=== PATIENT | male | born 1960 | race Caucasian/White ===

== ENCOUNTER 2018-06-06 15:09 | Emergency (ER) | payer OTHER, SELFPAY ==
[2018-06-06] VITALS (13 sets, daily range): BP systolic 117–132; BP diastolic 70–90; PULSE 67–79; RESP 11–21; TEMP 36.3; O2SAT 95–100; BMI 29.0
--- NOTE | 2018-06-06 15:27 | ED.CHESTPAIN ---
HPI - Chest Pain <IBIS Oliver-BC - Last Filed: 06/06/18 22:54> General Chief Complaint: Chest Pain Stated Complaint: CHEST TIGHTNESS AND BACK Time Seen by Provider: 06/06/18 15:25 Source: patient Mode of arrival: ambulatory Limitations: no limitations History of Present Illness HPI narrative: Patient presents with chief complaint of chest pain for 10 days. He states that was going on and off at 1st, but has become constant over the past 2-3 days. He states it was initially a relieved by eating, but it no longer is. It initially stayed in the front epigastric area and radiated to the back sometimes. But he states now it hurts in both places. He does complain of chest pain, but points to epigastric area distal to sternum. He denies any palpitations, lightheadedness, dizziness, fever, nausea, vomiting, diarrhea or abdominal pain. He does state he has been taking lots of Motrin the past few days for his arthritis. He states he had high it cholesterol about 5 years ago but denies high blood pressure. He denies any history of stroke or heart attack and his family, though his brother has 2 stents and his mother had high blood pressure. He tried some [id number] Zantac, but states it did not help her worsens pain. He denies any current alleviating factors at this point in time. He denies shortness of breath. He did just drive from [facility]. Related Data Previous Rx's Medication Instructions Recorded pantoprazole [Protonix] 40 mg PO DAILY #14 tab 06/06/18 Allergies Allergy/AdvReac Type Severity Reaction Status Date / Time No Known Drug Allergies Allergy Verified 06/06/18 15:28 Review of Systems <GILBERTO OliverBC - Last Filed: 06/06/18 22:54> Review of Systems GENERAL: See HPI HEENT: Denies sinus pain, ear pain, sore throat, difficulty swallowing, dizziness. RESPIRATORY: See HPI CARDIOVASCULAR: See HPI GASTROINTESTINAL: Denies nausea, vomiting, abdominal pain, diarrhea, constipation, melena. : Denies dysuria, frequency, incontinence, hematuria, urinary retention. MUSCULOSKELETAL: denies weakness, joint pain, or bony pain SKIN: Denies rash, skin lesions, or other NEUROLOGIC: Denies weakness, headache, numbness, change in speech, confusion, seizures, incoordination. PSYCHIATRIC: No concerning psychosocial issues. 12 point review of systems is negative except for those stated above Exam <CHRISSY OliverP-BC - Last Filed: 06/06/18 22:54> Narrative Exam Narrative: GENERAL: This is a well-nourished, well-developed patient, in no acute distress lying on stretcher. HEAD: Atraumatic. Normocephalic. No temporal or scalp tenderness. EYES: Pupils equal round and reactive. Extraocular motions intact. No scleral icterus. No injection or drainage. ENT: Nose without bleeding, purulent drainage or septal hematoma. Throat without erythema, tonsillar hypertrophy or exudate. Uvula midline. Airway patent. NECK: Trachea midline. No JVD or lymphadenopathy. Supple, nontender, no meningeal signs. CARDIOVASCULAR: Regular rate and rhythm without murmurs, gallops, or rubs. RESPIRATORY: Clear to auscultation. Breath sounds equal bilaterally. No wheezes, rales, or rhonchi. No cough on exam. No pain on anterior posterior compression or lateral compression. GASTROINTESTINAL: Abdomen soft, non-tender, nondistended. No hepato-splenomegaly, or palpable masses. No guarding. Active bowel sounds all 4 quadrants. EXTREMITIES: No clubbing, cyanosis, or edema. No joint tenderness, effusion, or edema noted. BACK: Spine is Nontender without deformity or crepitance. No flank tenderness. Pain to palpation of left paraspinal muscles in the thoracic area. NEURO: AOx3. SKIN: No rash or erythema. Initial Vital Signs Initial Vital Signs: Vital Signs Temperature 97.4 F L 06/06/18 15:21 Pulse Rate 76 06/06/18 15:21 Respiratory Rate 16 06/06/18 15:21 Blood Pressure 132/79 06/06/18 15:21 Pulse Oximetry 100 06/06/18 15:21 <Yogi Reece DO - Last Filed: 06/06/18 23:39> Initial Vital Signs Initial Vital Signs: Vital Signs Temperature 97.4 F L 06/06/18 15:21 Pulse Rate 76 06/06/18 15:21 Respiratory Rate 16 06/06/18 15:21 Blood Pressure 132/79 06/06/18 15:21 Pulse Oximetry 100 06/06/18 15:21 Course <Leanna Aguero [employer] SAL[employer]ERSON-BC - Last Filed: 06/06/18 22:54> Additional Information: I checked on the patient multiple times throughout his stay. Orders Ordered: ED Orders 06/06/18 15:17 EKG-12 Lead Routine 06/06/18 15:54 XR chest 1V Stat 06/06/18 15:55 Amylase Stat Complete Blood Count AUTO DIFF Stat Comprehensive Metabolic Panel Stat Lipase Stat Troponin & CK Cardiac Panel Stat 06/06/18 19:30 Troponin I Stat 06/06/18 20:36 CT angio chest PE protocol Stat Discontinued Medications Al Hydrox/Mg Hydrox/Simethicone 20 ml/ Lidocaine HCl 15 ml 0 ml PO NOW ONE Stop: 06/06/18 15:55 Last Admin: 06/06/18 16:30 Dose: 35 ml Al Hydrox/Mg Hydrox/Simethicone 20 ml/ Lidocaine HCl 15 ml 0 ml PO NOW ONE Stop: 06/06/18 22:25 Last Admin: 06/06/18 22:39 Dose: 35 ml Sodium Chloride (Normal Saline 0.9%) 1,000 mls @ 150 mls/hr IV CONT CATARINA Last Infusion: 06/06/18 22:55 Dose: 150 mls/hr Admin: 06/06/18 16:31 Dose: 150 mls/hr Ketorolac Tromethamine (Toradol) 30 mg IV NOW ONE Stop: 06/06/18 17:22 Last Admin: 06/06/18 17:32 Dose: 30 mg Pantoprazole Sodium (Protonix) 40 mg IV NOW ONE Stop: 06/06/18 17:12 Last Admin: 06/06/18 17:32 Dose: 40 mg Vital Signs - 8 hr 06/06/18 15:42 06/06/18 15:53 06/06/18 16:31 Pulse Rate 67 72 79 Respiratory Rate 21 16 13 Blood Pressure Blood Pressure [Left Arm] 129/90 119/77 129/90 Pulse Oximetry 100 95 98 06/06/18 16:41 06/06/18 17:00 06/06/18 17:51 Pulse Rate 73 74 76 Respiratory Rate 15 19 Blood Pressure Blood Pressure [Left Arm] 127/79 117/72 Pulse Oximetry 99 97 98 06/06/18 19:00 06/06/18 19:26 06/06/18 20:15 Pulse Rate 72 73 67 Respiratory Rate 17 19 11 L Blood Pressure Blood Pressure [Left Arm] 119/77 119/77 119/73 Pulse Oximetry 98 97 98 06/06/18 21:22 06/06/18 22:04 06/06/18 22:58 Pulse Rate 71 69 70 Respiratory Rate 13 Blood Pressure 124/70 Blood Pressure [Left Arm] 120/73 121/80 Pulse Oximetry 97 98 100 <Yogi Reece DO - Last Filed: 06/06/18 23:39> Orders Ordered: ED Orders 06/06/18 15:17 EKG-12 Lead Routine 06/06/18 15:54 XR chest 1V Stat 06/06/18 15:55 Amylase Stat Complete Blood Count AUTO DIFF Stat Comprehensive Metabolic Panel Stat Lipase Stat Troponin & CK Cardiac Panel Stat 06/06/18 19:30 Troponin I Stat 06/06/18 20:36 CT angio chest PE protocol Stat Discontinued Medications Al Hydrox/Mg Hydrox/Simethicone 20 ml/ Lidocaine HCl 15 ml 0 ml PO NOW ONE Stop: 06/06/18 15:55 Last Admin: 06/06/18 16:30 Dose: 35 ml Al Hydrox/Mg Hydrox/Simethicone 20 ml/ Lidocaine HCl 15 ml 0 ml PO NOW ONE Stop: 06/06/18 22:25 Last Admin: 06/06/18 22:39 Dose: 35 ml Sodium Chloride (Normal Saline 0.9%) 1,000 mls @ 150 mls/hr IV CONT CATARINA Last Infusion: 06/06/18 22:55 Dose: 150 mls/hr Admin: 06/06/18 16:31 Dose: 150 mls/hr Ketorolac Tromethamine (Toradol) 30 mg IV NOW ONE Stop: 06/06/18 17:22 Last Admin: 06/06/18 17:32 Dose: 30 mg Pantoprazole Sodium (Protonix) 40 mg IV NOW ONE Stop: 06/06/18 17:12 Last Admin: 06/06/18 17:32 Dose: 40 mg Vital Signs - 8 hr 06/06/18 15:42 06/06/18 15:53 06/06/18 16:31 Pulse Rate 67 72 79 Respiratory Rate 21 16 13 Blood Pressure Blood Pressure [Left Arm] 129/90 119/77 129/90 Pulse Oximetry 100 95 98 06/06/18 16:41 06/06/18 17:00 06/06/18 17:51 Pulse Rate 73 74 76 Respiratory Rate 15 19 Blood Pressure Blood Pressure [Left Arm] 127/79 117/72 Pulse Oximetry 99 97 98 06/06/18 19:00 06/06/18 19:26 06/06/18 20:15 Pulse Rate 72 73 67 Respiratory Rate 17 19 11 L Blood Pressure Blood Pressure [Left Arm] 119/77 119/77 119/73 Pulse Oximetry 98 97 98 06/06/18 21:22 06/06/18 22:04 06/06/18 22:58 Pulse Rate 71 69 70 Respiratory Rate 13 Blood Pressure 124/70 Blood Pressure [Left Arm] 120/73 121/80 Pulse Oximetry 97 98 100 MDM - Chest Pain <IBIS Oliver- - Last Filed: 06/06/18 22:54> Lab Data Attestation: I reviewed the patient's lab results. Result diagrams: 06/06/18 15:55 06/06/18 15:55 Lab Results 06/06/18 06/06/18 06/06/18 Range/Units 15:55 15:55 19:30 WBC 8.5 (4.5-11.0) X10^3/uL RBC 5.01 (4.5-5.9) X10^6/uL Hgb 14.3 (13.5-17.5) g/dL Hct 42.0 (41-53) % MCV 83.8 (80-100) fL MCH 28.7 (26-34) PG MCHC 34.2 (30-36) % RDW 13.9 (11.6-14.8) % Plt Count 291 (150-400) X10^3/uL Neut % (Auto) 60.8 (50-75) % Lymph % (Auto) 27.6 (25-40) % [place] % (Auto) 7.9 (3-14) % Eos % (Auto) 3.1 (2-4) % Baso % (Auto) 0.6 (0-2) % Neut # (Auto) 5100 (5772-1733) /uL Sodium 141 (137-145) mmol/L Potassium 4.3 (3.4-5.1) mmol/L Chloride 103 (98-107) mmol/L Carbon Dioxide 28 (22-32) mmol/L BUN 14 (9-20) mg/dL Creatinine 1.00 (0.66-1.25) mg/dL Estimated GFR > 60.0 (>60) mL/min BUN/Creatinine Ratio 14.0 (6-22) Glucose 84 (70-100) mg/dL Calcium 9.3 (8.4-10.2) mg/dL Total Bilirubin 0.4 (0.2-1.3) mg/dL AST 23 (17-59) IU/L ALT 32 (21-72) IU/L Alkaline Phosphatase 47 (38-126) U/L Total Creatine Kinase 115 (55-170) U/L CK-MB (CK-2) 1.25 (<2.37) ng/mL CK-MB (CK-2) Rel Index 1.1 L (1.5-5.0) % Troponin I < 0.012 < 0.012 (0.01-0.034) ng/mL Total Protein 7.1 (6.3-8.2) g/dL Albumin 4.2 (3.5-5.0) g/dL Globulin 2.9 (1.7-4.1) g/dL Albumin/Globulin Ratio 1.4 (1.0-2.8) Amylase 85 (30-110) U/L Lipase 66 (23-300) U/L Imaging Data Chest x-ray: Radiologist's impression: [place] [address] XRay Report Signed Patient: Alessandro Fuentes MR#: [id number] : 1960 Acct:[id number] Age/Sex: 57 / M Date of Service: 06/06/18 Loc: ED Accession Number: [id number] Procedure: XR chest 1V Ordering Provider: Leanna Aguero PROCEDURE: XR CHEST 1V INDICATIONS: chest pain TECHNIQUE: One view of the chest was acquired. COMPARISON: None. FINDINGS: Surgical changes and devices: None. Lungs and pleura: No pleural effusions or pneumothorax. Lungs are clear. Mediastinum: Mediastinal contours appear normal. Heart size is normal. Bones and chest wall: No suspicious bony lesions. Overlying soft tissues appear unremarkable. IMPRESSION: Unremarkable chest. No acute cardiopulmonary process is evident. Dictated by: Pedro Brandt M.D. on 06/06/2018 at 15:24 Approved by: Pedro Brandt M.D. on 06/06/2018 at 15:25 CT scan - chest: Radiologist's impression: [address] [address] [address] Scan Report Signed Patient: Alessandro Fuentes MR#: [id number] : 1960 Acct:[id number] Age/Sex: 57 / M Date of Service: 06/06/18 Loc: ED Accession Number: [id number] Procedure: CT angio chest PE protocol Ordering Provider: Leanna Aguero- PROCEDURE: CT ANGIO CHEST PE PROTOCOL INDICATIONS: epigastric pain radiating to back and front of chest TECHNIQUE: After the administration of intravenous contrast, 2 mm thick sections acquired from the pulmonary apices to the posterior costophrenic angles. 3-dimensional maximum intensity projection (MIP) coronal and sagittal reformats were then acquired through the thorax. For radiation dose reduction, the following was used: automated exposure control, adjustment of mA and/or kV according to patient size. COMPARISON: None. FINDINGS: Image quality: Excellent. Pulmonary arteries: Pulmonary arteries are normal in size, and demonstrate no intraluminal filling defects to suggest central pulmonary embolism. Lungs and pleura: Lungs are clear. No pleural effusions or pneumothorax. Central and peripheral airways are patent. Mediastinum: Heart size is normal, without pericardial effusion. No mediastinal or hilar adenopathy. Thoracic aorta is normal in caliber and enhancement. Mild coronary artery calcifications noted. Bones and chest wall: Mild multilevel degenerative changes of the spine. Ribs and thoracic spine appear intact throughout. Thyroid gland is unremarkable. No axillary or supraclavicular adenopathy. Nonspecific subcentimeter sclerotic focus within the posterior aspect of the right seventh rib, which may represent an enostosis/bone island or the sequela from prior fracture. Abdomen: There are mildly prominent mesenteric lymph nodes in the left upper quadrant of the abdomen. Imaged portions of the abdomen are otherwise unremarkable. IMPRESSION: No segmental or larger pulmonary emboli identified. Dictated by: Sourav Campbell M.D. on 06/06/2018 at 22:00 Approved by: Sourav Campbell M.D. on 06/06/2018 at 22:11 ECG Data Attestation: I personally reviewed and interpreted this ECG as follows: Interpretation: Sinus rhythm. Ventricular rate 67. No ST elevation or depression. No ectopy noted. MDM Narrative Medical decision making narrative: The patient presented with epigastric pain that radiated to his back. He initially had relief with a GI cocktail. He had a normal CBC, CMP within normal limits, 2 negative troponins. He had a normal chest x-ray. His pain returned after his GI cocktail. Thus I did get a CTA to evaluate his aorta and evaluate for pulmonary embolism, even though he had a negative Wells score. His CTA came back normal. He was given IV fluids throughout his stay. I checked on him multiple times throughout his stay. He did receive a dose of IV Protonix. I discharged him with strict follow-up instructions to speak with primary care provider the next day as well as a prescription for Protonix. I discussed at length a GERD diet, decreasing acid decreasing caffeine etc. Patient no questions or concerns upon discharge. <Yogi Reece DO - Last Filed: 06/06/18 23:39> Lab Data Lab Results 06/06/18 06/06/18 06/06/18 Range/Units 15:55 15:55 19:30 WBC 8.5 (4.5-11.0) X10^3/uL RBC 5.01 (4.5-5.9) X10^6/uL Hgb 14.3 (13.5-17.5) g/dL Hct 42.0 (41-53) % MCV 83.8 (80-100) fL MCH 28.7 (26-34) PG MCHC 34.2 (30-36) % RDW 13.9 (11.6-14.8) % Plt Count 291 (150-400) X10^3/uL Neut % (Auto) 60.8 (50-75) % Lymph % (Auto) 27.6 (25-40) % [place] % (Auto) 7.9 (3-14) % Eos % (Auto) 3.1 (2-4) % Baso % (Auto) 0.6 (0-2) % Neut # (Auto) 5100 (9322-4396) /uL Sodium 141 (137-145) mmol/L Potassium 4.3 (3.4-5.1) mmol/L Chloride 103 (98-107) mmol/L Carbon Dioxide 28 (22-32) mmol/L BUN 14 (9-20) mg/dL Creatinine 1.00 (0.66-1.25) mg/dL Estimated GFR > 60.0 (>60) mL/min BUN/Creatinine Ratio 14.0 (6-22) Glucose 84 (70-100) mg/dL Calcium 9.3 (8.4-10.2) mg/dL Total Bilirubin 0.4 (0.2-1.3) mg/dL AST 23 (17-59) IU/L ALT 32 (21-72) IU/L Alkaline Phosphatase 47 (38-126) U/L Total Creatine Kinase 115 (55-170) U/L CK-MB (CK-2) 1.25 (<2.37) ng/mL CK-MB (CK-2) Rel Index 1.1 L (1.5-5.0) % Troponin I < 0.012 < 0.012 (0.01-0.034) ng/mL Total Protein 7.1 (6.3-8.2) g/dL Albumin 4.2 (3.5-5.0) g/dL Globulin 2.9 (1.7-4.1) g/dL Albumin/Globulin Ratio 1.4 (1.0-2.8) Amylase 85 (30-110) U/L Lipase 66 (23-300) U/L Discharge Plan Departure Patient Disposition: Home Clinical Impression: Gastritis Discharge Date/Time: 06/06/18 22:59 Interventions: ED Discharge Assessment Last Done: 06/06/18 22:58 Instructions: DI for Gastritis, GERD Diet, DI for Thoracic Back Pain Activity Restrictions/Additional Instructions: I am starting on a medication to help reduce the acid in your stomach. I would like you to follow up with your primary care provider in the next few days. I would like you to follow the diet modifications we talked about, including reducing caffeine, alcohol, citrus. I would like you to avoid taking ibuprofen, Motrin or NSAIDs as this can make that pain worse. We did an EKG, several sets of blood work, and a CT of your chest and lungs. Everything came back okay. You did have some enlarged lymph nodes in the left upper quadrant your stomach. I would like you to follow up the primary care provider tomorrow. Come back to the emergency department if needed. Prescriptions: New pantoprazole [Protonix] 40 mg tablet,delayed release (DR/EC) 40 mg PO DAILY Qty: 14 RF: 0 Referrals: [facility] [Provider Group] <Yogi Reece DO - Last Filed: 06/06/18 23:39> Cosign ED Attending Ashvinature Attestation: I was immediately available in the department for consultation. Documentation has been reviewed. I agree with assessment and plan.
--- NOTE | 2018-06-06 15:54 | DI.RAD.S_ITS ---
PROCEDURE: XR CHEST 1V INDICATIONS: chest pain TECHNIQUE: One view of the chest was acquired. COMPARISON: None. FINDINGS: Surgical changes and devices: None. Lungs and pleura: No pleural effusions or pneumothorax. Lungs are clear. Mediastinum: Mediastinal contours appear normal. Heart size is normal. Bones and chest wall: No suspicious bony lesions. Overlying soft tissues appear unremarkable. IMPRESSION: Unremarkable chest. No acute cardiopulmonary process is evident. Dictated by: Pedro Brandt M.D. on 06/06/2018 at 15:24 Approved by: Pedro Brandt M.D. on 06/06/2018 at 15:25
--- NOTE | 2018-06-06 16:05 | ED_ITS ---
HPI - Chest Pain <IBIS Oliver-BC - Last Filed: 06/06/18 22:54> General Chief Complaint: Chest Pain Stated Complaint: CHEST TIGHTNESS AND BACK Time Seen by Provider: 06/06/18 15:25 Source: patient Mode of arrival: ambulatory Limitations: no limitations History of Present Illness HPI narrative: Patient presents with chief complaint of chest pain for 10 days. He states that was going on and off at 1st, but has become constant over the past 2-3 days. He states it was initially a relieved by eating, but it no longer is. It initially stayed in the front epigastric area and radiated to the back sometimes. But he states now it hurts in both places. He does complain of chest pain, but points to epigastric area distal to sternum. He denies any palpitations, lightheadedness, dizziness, fever, nausea, vomiting, diarrhea or abdominal pain. He does state he has been taking lots of Motrin the past few days for his arthritis. He states he had high it cholesterol about 5 years ago but denies high blood pressure. He denies any history of stroke or heart attack and his family, though his brother has 2 stents and his mother had high blood pressure. He tried some [id number] Zantac, but states it did not help her worsens pain. He denies any current alleviating factors at this point in time. He denies shortness of breath. He did just drive from [facility]. Related Data Previous Rx's Medication Instructions Recorded pantoprazole [Protonix] 40 mg PO DAILY #14 tab 06/06/18 Allergies Allergy/AdvReac Type Severity Reaction Status Date / Time No Known Drug Allergies Allergy Verified 06/06/18 15:28 Review of Systems <GILBERTO OliverBC - Last Filed: 06/06/18 22:54> Review of Systems GENERAL: See HPI HEENT: Denies sinus pain, ear pain, sore throat, difficulty swallowing, dizziness. RESPIRATORY: See HPI CARDIOVASCULAR: See HPI GASTROINTESTINAL: Denies nausea, vomiting, abdominal pain, diarrhea, constipation, melena. : Denies dysuria, frequency, incontinence, hematuria, urinary retention. MUSCULOSKELETAL: denies weakness, joint pain, or bony pain SKIN: Denies rash, skin lesions, or other NEUROLOGIC: Denies weakness, headache, numbness, change in speech, confusion, seizures, incoordination. PSYCHIATRIC: No concerning psychosocial issues. 12 point review of systems is negative except for those stated above Exam <CHRISSY OliverP-BC - Last Filed: 06/06/18 22:54> Narrative Exam Narrative: GENERAL: This is a well-nourished, well-developed patient, in no acute distress lying on stretcher. HEAD: Atraumatic. Normocephalic. No temporal or scalp tenderness. EYES: Pupils equal round and reactive. Extraocular motions intact. No scleral icterus. No injection or drainage. ENT: Nose without bleeding, purulent drainage or septal hematoma. Throat without erythema, tonsillar hypertrophy or exudate. Uvula midline. Airway patent. NECK: Trachea midline. No JVD or lymphadenopathy. Supple, nontender, no meningeal signs. CARDIOVASCULAR: Regular rate and rhythm without murmurs, gallops, or rubs. RESPIRATORY: Clear to auscultation. Breath sounds equal bilaterally. No wheezes , rales, or rhonchi. No cough on exam. No pain on anterior posterior compression or lateral compression. GASTROINTESTINAL: Abdomen soft, non-tender, nondistended. No hepato-splenomegaly , or palpable masses. No guarding. Active bowel sounds all 4 quadrants. EXTREMITIES: No clubbing, cyanosis, or edema. No joint tenderness, effusion, or edema noted. BACK: Spine is Nontender without deformity or crepitance. No flank tenderness. Pain to palpation of left paraspinal muscles in the thoracic area. NEURO: AOx3. SKIN: No rash or erythema. Initial Vital Signs Initial Vital Signs: Vital Signs Temperature 97.4 F L 06/06/18 15:21 Pulse Rate 76 06/06/18 15:21 Respiratory Rate 16 06/06/18 15:21 Blood Pressure 132/79 06/06/18 15:21 Pulse Oximetry 100 06/06/18 15:21 <Yogi Reece DO - Last Filed: 06/06/18 23:39> Initial Vital Signs Initial Vital Signs: Vital Signs Temperature 97.4 F L 06/06/18 15:21 Pulse Rate 76 06/06/18 15:21 Respiratory Rate 16 06/06/18 15:21 Blood Pressure 132/79 06/06/18 15:21 Pulse Oximetry 100 06/06/18 15:21 Course <Leanna Aguero SQL SERVER CONSULTANT-BC - Last Filed: 06/06/18 22:54> Additional Information: I checked on the patient multiple times throughout his stay. Orders Ordered: ED Orders 06/06/18 15:17 EKG-12 Lead Routine 06/06/18 15:54 XR chest 1V Stat 06/06/18 15:55 Amylase Stat Complete Blood Count AUTO DIFF Stat Comprehensive Metabolic Panel Stat Lipase Stat Troponin & CK Cardiac Panel Stat 06/06/18 19:30 Troponin I Stat 06/06/18 20:36 CT angio chest PE protocol Stat Discontinued Medications Al Hydrox/Mg Hydrox/Simethicone 20 ml/ Lidocaine HCl 15 ml 0 ml PO NOW ONE Stop: 06/06/18 15:55 Last Admin: 06/06/18 16:30 Dose: 35 ml Al Hydrox/Mg Hydrox/Simethicone 20 ml/ Lidocaine HCl 15 ml 0 ml PO NOW ONE Stop: 06/06/18 22:25 Last Admin: 06/06/18 22:39 Dose: 35 ml Sodium Chloride (Normal Saline 0.9%) 1,000 mls @ 150 mls/hr IV CONT CATARINA Last Infusion: 06/06/18 22:55 Dose: 150 mls/hr Admin: 06/06/18 16:31 Dose: 150 mls/hr Ketorolac Tromethamine (Toradol) 30 mg IV NOW ONE Stop: 06/06/18 17:22 Last Admin: 06/06/18 17:32 Dose: 30 mg Pantoprazole Sodium (Protonix) 40 mg IV NOW ONE Stop: 06/06/18 17:12 Last Admin: 06/06/18 17:32 Dose: 40 mg Vital Signs - 8 hr 06/06/18 15:42 06/06/18 15:53 06/06/18 16:31 Pulse Rate 67 72 79 Respiratory Rate 21 16 13 Blood Pressure Blood Pressure [Left Arm] 129/90 119/77 129/90 Pulse Oximetry 100 95 98 06/06/18 16:41 06/06/18 17:00 06/06/18 17:51 Pulse Rate 73 74 76 Respiratory Rate 15 19 Blood Pressure Blood Pressure [Left Arm] 127/79 117/72 Pulse Oximetry 99 97 98 06/06/18 19:00 06/06/18 19:26 06/06/18 20:15 Pulse Rate 72 73 67 Respiratory Rate 17 19 11 L Blood Pressure Blood Pressure [Left Arm] 119/77 119/77 119/73 Pulse Oximetry 98 97 98 06/06/18 21:22 06/06/18 22:04 06/06/18 22:58 Pulse Rate 71 69 70 Respiratory Rate 13 Blood Pressure 124/70 Blood Pressure [Left Arm] 120/73 121/80 Pulse Oximetry 97 98 100 <Yogi Reece DO - Last Filed: 06/06/18 23:39> Orders Ordered: ED Orders 06/06/18 15:17 EKG-12 Lead Routine 06/06/18 15:54 XR chest 1V Stat 06/06/18 15:55 Amylase Stat Complete Blood Count AUTO DIFF Stat Comprehensive Metabolic Panel Stat Lipase Stat Troponin & CK Cardiac Panel Stat 06/06/18 19:30 Troponin I Stat 06/06/18 20:36 CT angio chest PE protocol Stat Discontinued Medications Al Hydrox/Mg Hydrox/Simethicone 20 ml/ Lidocaine HCl 15 ml 0 ml PO NOW ONE Stop: 06/06/18 15:55 Last Admin: 06/06/18 16:30 Dose: 35 ml Al Hydrox/Mg Hydrox/Simethicone 20 ml/ Lidocaine HCl 15 ml 0 ml PO NOW ONE Stop: 06/06/18 22:25 Last Admin: 06/06/18 22:39 Dose: 35 ml Sodium Chloride (Normal Saline 0.9%) 1,000 mls @ 150 mls/hr IV CONT CATARINA Last Infusion: 06/06/18 22:55 Dose: 150 mls/hr Admin: 06/06/18 16:31 Dose: 150 mls/hr Ketorolac Tromethamine (Toradol) 30 mg IV NOW ONE Stop: 06/06/18 17:22 Last Admin: 06/06/18 17:32 Dose: 30 mg Pantoprazole Sodium (Protonix) 40 mg IV NOW ONE Stop: 06/06/18 17:12 Last Admin: 06/06/18 17:32 Dose: 40 mg Vital Signs - 8 hr 06/06/18 15:42 06/06/18 15:53 06/06/18 16:31 Pulse Rate 67 72 79 Respiratory Rate 21 16 13 Blood Pressure Blood Pressure [Left Arm] 129/90 119/77 129/90 Pulse Oximetry 100 95 98 06/06/18 16:41 06/06/18 17:00 06/06/18 17:51 Pulse Rate 73 74 76 Respiratory Rate 15 19 Blood Pressure Blood Pressure [Left Arm] 127/79 117/72 Pulse Oximetry 99 97 98 06/06/18 19:00 06/06/18 19:26 06/06/18 20:15 Pulse Rate 72 73 67 Respiratory Rate 17 19 11 L Blood Pressure Blood Pressure [Left Arm] 119/77 119/77 119/73 Pulse Oximetry 98 97 98 06/06/18 21:22 06/06/18 22:04 06/06/18 22:58 Pulse Rate 71 69 70 Respiratory Rate 13 Blood Pressure 124/70 Blood Pressure [Left Arm] 120/73 121/80 Pulse Oximetry 97 98 100 MDM - Chest Pain <IBIS Oliver- - Last Filed: 06/06/18 22:54> Lab Data Attestation: I reviewed the patient's lab results. Result diagrams: 06/06/18 15:55 06/06/18 15:55 Lab Results 06/06/18 06/06/18 06/06/18 Range/Units 15:55 15:55 19:30 WBC 8.5 (4.5-11.0) X10^3/uL RBC 5.01 (4.5-5.9) X10^6/uL Hgb 14.3 (13.5-17.5) g/dL Hct 42.0 (41-53) % MCV 83.8 (80-100) fL MCH 28.7 (26-34) PG MCHC 34.2 (30-36) % RDW 13.9 (11.6-14.8) % Plt Count 291 (150-400) X10^3/uL Neut % (Auto) 60.8 (50-75) % Lymph % (Auto) 27.6 (25-40) % [place] % (Auto) 7.9 (3-14) % Eos % (Auto) 3.1 (2-4) % Baso % (Auto) 0.6 (0-2) % Neut # (Auto) 5100 (2548-5988) /uL Sodium 141 (137-145) mmol/L Potassium 4.3 (3.4-5.1) mmol/L Chloride 103 (98-107) mmol/L Carbon Dioxide 28 (22-32) mmol/L BUN 14 (9-20) mg/dL Creatinine 1.00 (0.66-1.25) mg/dL Estimated GFR > 60.0 (>60) mL/min BUN/Creatinine Ratio 14.0 (6-22) Glucose 84 (70-100) mg/dL Calcium 9.3 (8.4-10.2) mg/dL Total Bilirubin 0.4 (0.2-1.3) mg/dL AST 23 (17-59) IU/L ALT 32 (21-72) IU/L Alkaline Phosphatase 47 (38-126) U/L Total Creatine Kinase 115 (55-170) U/L CK-MB (CK-2) 1.25 (<2.37) ng/mL CK-MB (CK-2) Rel Index 1.1 L (1.5-5.0) % Troponin I < 0.012 < 0.012 (0.01-0.034) ng/mL Total Protein 7.1 (6.3-8.2) g/dL Albumin 4.2 (3.5-5.0) g/dL Globulin 2.9 (1.7-4.1) g/dL Albumin/Globulin Ratio 1.4 (1.0-2.8) Amylase 85 (30-110) U/L Lipase 66 (23-300) U/L Imaging Data Chest x-ray: Radiologist's impression: [place] [address] XRay Report Signed Patient: Alessandro Fuentes MR#: [id number] : 1960 Acct:[id number] Age/Sex: 57 / M Date of Service: 06/06/18 Loc: ED Accession Number: [id number] Procedure: XR chest 1V Ordering Provider: Leanna Aguero PROCEDURE: XR CHEST 1V INDICATIONS: chest pain TECHNIQUE: One view of the chest was acquired. COMPARISON: None. FINDINGS: Surgical changes and devices: None. Lungs and pleura: No pleural effusions or pneumothorax. Lungs are clear. Mediastinum: Mediastinal contours appear normal. Heart size is normal. Bones and chest wall: No suspicious bony lesions. Overlying soft tissues appear unremarkable. IMPRESSION: Unremarkable chest. No acute cardiopulmonary process is evident. Dictated by: Pedro Brandt M.D. on 06/06/2018 at 15:24 Approved by: Pedro Brandt M.D. on 06/06/2018 at 15:25 CT scan - chest: Radiologist's impression: [address] [address] [address] Scan Report Signed Patient: Alessandro Fuentes MR#: [id number] : 1960 Acct:[id number] Age/Sex: 57 / M Date of Service: 06/06/18 Loc: ED Accession Number: [id number] Procedure: CT angio chest PE protocol Ordering Provider: Leanna Augero- PROCEDURE: CT ANGIO CHEST PE PROTOCOL INDICATIONS: epigastric pain radiating to back and front of chest TECHNIQUE: After the administration of intravenous contrast, 2 mm thick sections acquired from the pulmonary apices to the posterior costophrenic angles. 3-dimensional maximum intensity projection (MIP) coronal and sagittal reformats were then acquired through the thorax. For radiation dose reduction, the following was used: automated exposure control, adjustment of mA and/or kV according to patient size. COMPARISON: None. FINDINGS: Image quality: Excellent. Pulmonary arteries: Pulmonary arteries are normal in size, and demonstrate no intraluminal filling defects to suggest central pulmonary embolism. Lungs and pleura: Lungs are clear. No pleural effusions or pneumothorax. Central and peripheral airways are patent. Mediastinum: Heart size is normal, without pericardial effusion. No mediastinal or hilar adenopathy. Thoracic aorta is normal in caliber and enhancement. Mild coronary artery calcifications noted. Bones and chest wall: Mild multilevel degenerative changes of the spine. Ribs and thoracic spine appear intact throughout. Thyroid gland is unremarkable. No axillary or supraclavicular adenopathy. Nonspecific subcentimeter sclerotic focus within the posterior aspect of the right seventh rib, which may represent an enostosis/ bone island or the sequela from prior fracture. Abdomen: There are mildly prominent mesenteric lymph nodes in the left upper quadrant of the abdomen. Imaged portions of the abdomen are otherwise unremarkable. IMPRESSION: No segmental or larger pulmonary emboli identified. Dictated by: Sourav Campbell M.D. on 06/06/2018 at 22:00 Approved by: Sourav Campbell M.D. on 06/06/2018 at 22:11 ECG Data Attestation: I personally reviewed and interpreted this ECG as follows: Interpretation: Sinus rhythm. Ventricular rate 67. No ST elevation or depression. No ectopy noted. MDM Narrative Medical decision making narrative: The patient presented with epigastric pain that radiated to his back. He initially had relief with a GI cocktail. He had a normal CBC, CMP within normal limits, 2 negative troponins. He had a normal chest x-ray. His pain returned after his GI cocktail. Thus I did get a CTA to evaluate his aorta and evaluate for pulmonary embolism, even though he had a negative Wells score. His CTA came back normal. He was given IV fluids throughout his stay. I checked on him multiple times throughout his stay. He did receive a dose of IV Protonix. I discharged him with strict follow-up instructions to speak with primary care provider the next day as well as a prescription for Protonix. I discussed at length a GERD diet, decreasing acid decreasing caffeine etc. Patient no questions or concerns upon discharge. <Yogi Reece DO - Last Filed: 06/06/18 23:39> Lab Data Lab Results 06/06/18 06/06/18 06/06/18 Range/Units 15:55 15:55 19:30 WBC 8.5 (4.5-11.0) X10^3/uL RBC 5.01 (4.5-5.9) X10^6/uL Hgb 14.3 (13.5-17.5) g/dL Hct 42.0 (41-53) % MCV 83.8 (80-100) fL MCH 28.7 (26-34) PG MCHC 34.2 (30-36) % RDW 13.9 (11.6-14.8) % Plt Count 291 (150-400) X10^3/uL Neut % (Auto) 60.8 (50-75) % Lymph % (Auto) 27.6 (25-40) % [place] % (Auto) 7.9 (3-14) % Eos % (Auto) 3.1 (2-4) % Baso % (Auto) 0.6 (0-2) % Neut # (Auto) 5100 (3765-0157) /uL Sodium 141 (137-145) mmol/L Potassium 4.3 (3.4-5.1) mmol/L Chloride 103 (98-107) mmol/L Carbon Dioxide 28 (22-32) mmol/L BUN 14 (9-20) mg/dL Creatinine 1.00 (0.66-1.25) mg/dL Estimated GFR > 60.0 (>60) mL/min BUN/Creatinine Ratio 14.0 (6-22) Glucose 84 (70-100) mg/dL Calcium 9.3 (8.4-10.2) mg/dL Total Bilirubin 0.4 (0.2-1.3) mg/dL AST 23 (17-59) IU/L ALT 32 (21-72) IU/L Alkaline Phosphatase 47 (38-126) U/L Total Creatine Kinase 115 (55-170) U/L CK-MB (CK-2) 1.25 (<2.37) ng/mL CK-MB (CK-2) Rel Index 1.1 L (1.5-5.0) % Troponin I < 0.012 < 0.012 (0.01-0.034) ng/mL Total Protein 7.1 (6.3-8.2) g/dL Albumin 4.2 (3.5-5.0) g/dL Globulin 2.9 (1.7-4.1) g/dL Albumin/Globulin Ratio 1.4 (1.0-2.8) Amylase 85 (30-110) U/L Lipase 66 (23-300) U/L Discharge Plan Departure Patient Disposition: Home Clinical Impression: Gastritis Discharge Date/Time: 06/06/18 22:59 Interventions: ED Discharge Assessment Last Done: 06/06/18 22:58 Instructions: DI for Gastritis, GERD Diet, DI for Thoracic Back Pain Activity Restrictions/Additional Instructions: I am starting on a medication to help reduce the acid in your stomach. I would like you to follow up with your primary care provider in the next few days. I would like you to follow the diet modifications we talked about, including reducing caffeine, alcohol, citrus. I would like you to avoid taking ibuprofen , Motrin or NSAIDs as this can make that pain worse. We did an EKG, several sets of blood work, and a CT of your chest and lungs. Everything came back okay. You did have some enlarged lymph nodes in the left upper quadrant your stomach. I would like you to follow up the primary care provider tomorrow. Come back to the emergency department if needed. Prescriptions: New pantoprazole [Protonix] 40 mg tablet,delayed release (DR/EC) 40 mg PO DAILY Qty: 14 RF: 0 Referrals: [facility] [Provider Group] <Yogi Reece DO - Last Filed: 06/06/18 23:39> Cosign ED Attending Ashvinature Attestation: I was immediately available in the department for consultation. Documentation has been reviewed. I agree with assessment and plan.
[2018-06-06 16:14] LABS: Add Manual Diff / Slide Review NO; Basophils Percent Auto 0.6 % (0-2); Eosinophils Percent Auto 3.1 % (2-4); Hemoglobin 14.3 g/dL (13.5-17.5); Lymphocytes Percent Auto 27.6 % (25-40); Mean Corpuscular HGB Conc 34.2 % (30-36); Mean Corpuscular Hemoglobin 28.7 PG (26-34); Mean Corpuscular Volume 83.8 fL (80-100); Monocytes Percent Auto 7.9 % (3-14); Neutrophils Absolute Auto 5100 /uL (3000-5900); Neutrophils Percent Auto 60.8 % (50-75); Platelet Count 291 X10^3/uL (150-400); Red Blood Cell Count 5.01 X10^6/uL (4.5-5.9); Red Cell Distribution Width 13.9 % (11.6-14.8); White Blood Cell Count 8.5 X10^3/uL (4.5-11.0)
[2018-06-06 16:25] LABS: Alanine Aminotransferase 32 IU/L (21-72); Albumin 4.2 g/dL (3.5-5.0); Albumin Globulin Ratio 1.4 (1.0-2.8); Alkaline Phosphatase 47 U/L (38-126); Amylase 85 U/L (30-110); Aspartate Aminotransferase 23 IU/L (17-59); Bilirubin Total 0.4 mg/dL (0.2-1.3); Blood Urea Nitrogen 14 mg/dL (9-20); Calcium 9.3 mg/dL (8.4-10.2); Carbon Dioxide 28 mmol/L (22-32); Chloride 103 mmol/L (98-107); Creatine Kinase 115 U/L (55-170); Estimated Glomerular Filt Rate > 60.0 mL/min (>60); Globulin 2.9 g/dL (1.7-4.1); Glucose 84 mg/dL (70-100); HEMOLYSIS < 15 (0-50); Lipase 66 U/L (23-300); Potassium 4.3 mmol/L (3.4-5.1); Sodium 141 mmol/L (137-145); Total Protein 7.1 g/dL (6.3-8.2)
[2018-06-06] MEDS: MAG HYDROX/ALUMINUM/SIMETH SUS 20 ML, LIDOCAINE VISCOUS 2% 15 ML PO ×2 (16:30→22:39)
[2018-06-06] MEDS: SODIUM CHLORIDE 0.9% 1,000 ML 150 ML IV (16:31)
[2018-06-06 16:38] LABS: Troponin I < 0.012 ng/mL (0.01-0.034)
[2018-06-06 16:40] LABS: CKMB % Relative Index 1.1 % (1.5-5.0); Creatine Kinase MB 1.25 ng/mL (<2.37)
[2018-06-06] MEDS: PANTOPRAZOLE 40 MG VIAL IV (17:32)
[2018-06-06] MEDS: KETOROLAC 30 MG/ML VIAL IV (17:32)
[2018-06-06 20:05] LABS: Troponin I < 0.012 ng/mL (0.01-0.034)
--- NOTE | 2018-06-06 20:36 | DI.CT.S_ITS ---
PROCEDURE: CT ANGIO CHEST PE PROTOCOL INDICATIONS: epigastric pain radiating to back and front of chest TECHNIQUE: After the administration of intravenous contrast, 2 mm thick sections acquired from the pulmonary apices to the posterior costophrenic angles. 3-dimensional maximum intensity projection (MIP) coronal and sagittal reformats were then acquired through the thorax. For radiation dose reduction, the following was used: automated exposure control, adjustment of mA and/or kV according to patient size. COMPARISON: None. FINDINGS: Image quality: Excellent. Pulmonary arteries: Pulmonary arteries are normal in size, and demonstrate no intraluminal filling defects to suggest central pulmonary embolism. Lungs and pleura: Lungs are clear. No pleural effusions or pneumothorax. Central and peripheral airways are patent. Mediastinum: Heart size is normal, without pericardial effusion. No mediastinal or hilar adenopathy. Thoracic aorta is normal in caliber and enhancement. Mild coronary artery calcifications noted. Bones and chest wall: Mild multilevel degenerative changes of the spine. Ribs and thoracic spine appear intact throughout. Thyroid gland is unremarkable. No axillary or supraclavicular adenopathy. Nonspecific subcentimeter sclerotic focus within the posterior aspect of the right seventh rib, which may represent an enostosis/bone island or the sequela from prior fracture. Abdomen: There are mildly prominent mesenteric lymph nodes in the left upper quadrant of the abdomen. Imaged portions of the abdomen are otherwise unremarkable. IMPRESSION: No segmental or larger pulmonary emboli identified. Dictated by: Sourav Campbell M.D. on 06/06/2018 at 22:00 Approved by: Sourav Campbell M.D. on 06/06/2018 at 22:11
== END 2018-06-06 22:59 | disposition home or self-care (01) ==
PROVIDERS: Emergency Provider Nurse Practitioner Family
DX: K29.70 Gastritis, unspecified, without bleeding (principal)
CPT/HCPCS: 36591; 71045; 71275; 80053; 81003; 82150; 82550; 82553; 83690; 84484; 85025; 93005; 93010; 93041; 96361; 96374; 96375; 99285; C9113; J1885; Q9967

== ENCOUNTER → 2019-03-17 07:46 | Outpatient (CLI) | payer OTHER, SELFPAY ==
--- NOTE | 2019-03-17 | DI.MRI.S_ITS ---
PROCEDURE: MR HIP LT WO/W CON INDICATIONS: CHRONIC LEFT HIP AND BUTTOCK PAIN TECHNIQUE: Noncontrast coronal T1 spin echo and STIR through the bony pelvis. Coronal and axial T2 fast spin echo with fat saturation, axial T1 spin echo with fat saturation, sagittal T1 spin echo, and oblique axial T2 fast spin echo with fat saturation through the hip. Post-contrast axial, coronal, and sagittal spin echo with fat saturation through the hip. COMPARISON: None. FINDINGS: Image quality: Excellent. Bones and joints: No suspicious osseous enhancement. Mild to moderate bilateral hip joint osteoarthritic changes are seen slightly worse on the left side with joint space narrowing, subchondral sclerosis and mild edema. No intraosseous lesions or fractures. No avascular necrosis of the femoral heads. The visualized lower lumbar spine appears normally aligned. Tendons and ligaments: The gluteus medius and minimus tendons appear intact, without associated muscle atrophy. The nearby proximal iliotibial band also appears intact. The iliopsoas tendon appears intact, without adjacent bursal fluid collections or evidence for impingement syndrome. The origin of the hamstring tendon is intact at the ischial tuberosity, as well as the associated sacrotuberous ligament. The straight and reflected heads of the rectus femoris muscle origin appear intact, as well as the conjoint tendon. The ligamentum teres appears intact where visualized. Labrum and cartilage: Any absence of intra-articular contrast, there is suggestion of superior anterior left hip labral tear. In addition. There is also suggestion of posterior inferior left hip labral tear and posterior inferior capsular tear/avulsion with adjacent dorsal soft tissue edema. The alpha angle of the femur is within normal limits at less than 55 degrees. Soft tissues: No suspicious soft tissue enhancement. Visualized muscles demonstrate normal bulk and internal signal. Quadratus femoris muscle demonstrates no internal edema to suggest ischiofemoral impingement. The proximal sciatic neurovascular bundle appears normal adjacent to the hamstring tendons. No free pelvic fluid. Bladder wall thickness is normal. Genitourinary structures and bowel loops appear normal where visualized. IMPRESSION: 1. Left worst than right mild to moderate bilateral hip joint osteoarthritis. No fracture or dislocation. No evidence of avascular necrosis. No abnormal intraosseous enhancement. 2. Suggestion of focal superior anterior left hip labral tear. There is also suggestion of left posterior inferior hip labral tear with adjacent capsular tear/avulsion. 3. No other muscle or tendon signal abnormality. No abnormal soft tissue enhancement. Dictated by: Shemar James M.D. on 03/17/2019 at 9:52 Approved by: Shemar James M.D. on 03/17/2019 at 10:00
== END ==
PROVIDERS: PCP Family Medicine; Visit Provider Family Medicine
DX: M25.552 Pain in left hip (principal); M16.0 Bilateral primary osteoarthritis of hip; G89.29 Other chronic pain
CPT/HCPCS: 73723

== ENCOUNTER → 2021-02-05 12:29 | Outpatient (CLI) | payer OTHER, SELFPAY ==
--- NOTE | 2021-02-05 | DI.MRI.S_ITS ---
PROCEDURE: MR LUMBAR SPINE WO CON INDICATIONS: Radiculopathy, lumbar region TECHNIQUE: Noncontrast sagittal T1 spin echo and T2 fast echo, sagittal STIR, axial T1 and T2 fast spin echo through the lumbar spine. In cases with scoliosis, additional coronal T2 fast spin echo may be performed. COMPARISON: None. FINDINGS: Image quality: Excellent. Alignment and Curvature: There is normal bony alignment. Bone Marrow: Reactive endplate changes noted adjacent to the L1-L2, L2-L3, L3-L4 and L4-L5 discs. Small Schmorl's node noted in the inferior endplate of the L1 vertebral body, inferior endplate of the L2 vertebral body and superior endplate of the L3 vertebral body. Benign, intraosseous hemangioma noted in the S1 vertebral body. No acute vertebral body compression fractures. Spinal Cord: Conus medullaris terminates at the L1 level. Visualized cord demonstrates normal signal and size. Paraspinous Soft Tissues: No paravertebral masses. T12-L1: Normal appearance. L1-L2: Loss of disc signal and height. Mild to moderate diffuse disc bulge. Mild narrowing of the central canal. Mild bilateral neural foraminal narrowing. No neural compression. L2-L3: Loss of disc signal and height. Mild, diffuse disc bulge. Mild bilateral facet hypertrophy. Mild narrowing of the central canal. Mild bilateral neural foraminal narrowing. No neural compression. L3-L4: Loss of disc signal and height. Mild, diffuse disc bulge. Mild bilateral facet hypertrophy. Mild narrowing of the central canal. Moderate bilateral neural foraminal narrowing. No neural compression. L4-L5: Loss of disc signal and height. Mild, diffuse disc bulge. Mild bilateral facet hypertrophy. Mild narrowing of the central canal. Moderate right and moderate to severe left neural foraminal narrowing with slight compression of the exiting left L4 nerve root. Fissure noted in the posterior annulus. L5-S1: Disc has a normal appearance. Mild bilateral facet hypertrophy. No central stenosis. No neural foraminal narrowing. No neural compression. IMPRESSION: 1. Multilevel degenerative disc disease. 2. Multilevel facet arthropathy. 3. No severe central canal narrowing. 4. Moderate to severe left L4-L5 neural foraminal narrowing with slight compression of the exiting left L4 nerve root. Please correlate with clinical data. 5. L4-L5 disc annulus fissure. Dictated by: Viv Gaytan MD, PhD on 02/07/2021 at 13:01 Approved by: Viv Gaytan MD, PhD on 02/07/2021 at 13:05
== END ==
PROVIDERS: PCP Family Medicine; Referring Provider Family Medicine; Visit Provider Family Medicine
DX: M51.16 Intervertebral disc disorders with radiculopathy, lumbar region (principal); M47.26 Other spondylosis with radiculopathy, lumbar region; M47.27 Other spondylosis with radiculopathy, lumbosacral region; M48.061 Spinal stenosis, lumbar region without neurogenic claudication
CPT/HCPCS: 72148

== ENCOUNTER → 2021-02-23 09:06 | Outpatient (CLI) | payer OTHER, SELFPAY ==
[2021-02-23 10:35] LABS: COVID19 -Nasal RAPID Negative (Negative)
== END ==
PROVIDERS: PCP Family Medicine; Visit Provider Surgery
DX: Z01.812 Encounter for preprocedural laboratory examination (principal); Z20.822 Contact with and (suspected) exposure to COVID-19
CPT/HCPCS: 87635; C9803

== ENCOUNTER 2021-02-24 11:52 | Day surgery (SDC) | payer OTHER, SELFPAY ==
[2021-02-24 12:06] VITALS: BP 132/88; PULSE 84; RESP 16; TEMP 36.6; O2SAT 99; BMI 29.0
[2021-02-24] MEDS: LACTATED RINGERS 1,000 ML 200 ML IV (12:23)
--- NOTE | 2021-02-24 13:04 | PM.HP.1 ---
History of Present Illness History of Present Illness Date Patient Seen: 02/24/21 Time Patient Seen: 13:04 Chief complaint: SDC Narrative: The patient presents for colorectal sreening. He had a previously normal colonoscopy 10 years ago.. No personal or family history of colon cancer. On further history denies any recent gastrointestinal symptoms. No nausea, vomiting, abdominal pain, loss of appetite, unexplained weight loss, change in bowel habits, diarrhea, constipation, melena, hematochezia, or bright red blood per rectum. Patient History Family & Social History Social History: household members spouse Tobacco & Substance use: Smoking Status Never smoker alcohol intake current alcohol intake frequency holiday/special occasion Substance Use Type does not use Meds Home Medications and Allergies Home Medications Medication Instructions Recorded Confirmed Type lidocaine patch 02/23/21 History Lipitor 10 mg PO DAILY 02/24/21 02/24/21 History Allergies Allergy/AdvReac Type Severity Reaction Status Date / Time No Known Drug Allergies Allergy Verified 02/24/21 12:26 Review of Systems Review of Systems ROS: Yes All systems reviewed with the patient and are negative except as otherwise documented Exam Vital Signs (past 8 hours): - 02/24/21 12:06 Temperature 97.9 F Pulse Rate 84 Respiratory Rate 16 Blood Pressure 132/88 Pulse Oximetry 99 Oxygen Delivery Method Room Air Narrative Exam Narrative: GENERAL-well developed adult male, no acute distress HEENT-no scleral icterus, hearing intact NECK-no JVD, trachea midline CVS- regular rate, no peripheral edema RESP-unlabored respiratory effort, no audible wheezing GI-soft, nontender nondistended MSK-no cyanosis or clubbing, extremities without deformity SKIN-warm, dry NEURO-alert and oriented, no focal deficits PYSCH-Appropriate mood and affect Assessment & Plan Assessment & Plan narrative: The patient requires colorectal screening and colonoscopy is recommended. Technical details were discussed. Risks, benefits, alternatives explained. Risks including but not limited to myocardial infarction, aspiration, bleeding, pain, missed lesion, incomplete examination, need for further radiographic studies, colonic perforation, and need for major abdominal surgery were discussed. All questions were answered to their satisfaction, and they are in agreement with this plan.
[2021-02-24] MEDS: fentaNYL 250 MCG/5 ML INJ IV (13:21)
[2021-02-24] MEDS: MIDAZOLAM 5 MG/5 ML VIAL IV (13:27)
--- NOTE | 2021-02-24 13:37 | PM.OP.ENDO ---
Operative Date/Time/Diagnoses Date of procedure: 02/24/21 Time of procedure: 13:37 Pre-op diagnosis: Screening colonoscopy Post-op diagnosis: same Procedure & Clinicians Study performed: Colonoscopy Same procedure as scheduled: Yes Indications: Screening Surgeon: Mc Cantu Procedure Notes Procedure in detail: Medications: Conscious sedation using 6mg IV midazolam and 200 mcg IV of fentanyl The history and physical was performed/updated and the patient is ASA class is 1. The procedure was discussed in detail with the patient. Potential risks complications including infection, bleeding, missed diagnosis, perforation, need for surgery, and were explained. Their questions were answered and informed consent was obtained. Patient was brought to the procedure room and placed standard monitoring equipment. The patient's vital signs were monitored continuously throughout the entire procedure. Prior to starting time-out was performed. The patient was placed in the left lateral recumbent position. Procedural sedation was administered. Examination began with a thorough inspection of the perianal area there was no evidence of fissures, fistulae, external hemorrhoids or cutaneous malignancy. The colonoscopy scope was then placed into the anal canal and was advanced to the cecum, which was identified by the ileocecal valve, the appendiceal orifice and the confluence of the taenia. The scope was then slowly withdrawn examining colon thoroughly in all directions, irrigating it of any residual stool. 1. No masses or polyps 2. Grade 2 internal hemorrhoids The patient tolerated the procedure well. They will be discharged once criteria are met. The prep was of good/excellent quality. The withdrawl time was 7 minutes. The sedation time was 27 minutes. Specimen(s): none sent Complications: none Impression: Normal colonoscopy Post-procedure Recommendations: Colonscopy in 10 years Disposition: same day surgery
[2021-02-24 13:40] VITALS: BP 114/81; PULSE 97; RESP 17; TEMP 36.3; O2SAT 99
[2021-02-24 13:45] VITALS: BP 122/90; PULSE 85; RESP 17; O2SAT 96
[2021-02-24 13:55] VITALS: BP 109/76; PULSE 98; RESP 14; TEMP 36.6; O2SAT 96
[2021-02-24 14:05] VITALS: BP 110/82; PULSE 90; RESP 12; TEMP 36.6; O2SAT 96
== END 2021-02-24 14:17 | disposition home or self-care (01) ==
PROVIDERS: PCP Family Medicine; Referring Provider Surgery; Visit Provider Surgery
PROC: 0DJD8ZZ Inspection of Lower Intestinal Tract, Via Natural or Artificial Opening Endoscopic (ICD-10-PCS; CPT 45378; principal; 2021-02-24 13:00)
DX: Z12.11 Encounter for screening for malignant neoplasm of colon (principal); K64.1 Second degree hemorrhoids
CPT/HCPCS: 45378; 99152; J2250; J3010

== ENCOUNTER → 2021-03-15 15:40 | Outpatient (CLI) | payer OTHER, SELFPAY ==
--- NOTE | 2021-03-15 | DI.MRI.S_ITS ---
PROCEDURE: MR HIP LT WO CON INDICATIONS: unilateral primary osteoarthritis, left hip TECHNIQUE: Noncontrast coronal T1 spin echo and STIR through the bony pelvis. Coronal and axial T2 fast spin echo with fat saturation, sagittal T1 spin echo, and oblique axial T2 fast spin echo with fat saturation through the hip. COMPARISON: [facility], MR, HIP WITHOUT CONTRAST, 01/10/2018, 10:48. FINDINGS: Image quality: Excellent. Bones and joints: There is increased moderate T2 signal elevation within the left posterosuperior acetabulum. Moderate periarticular osteophyte formation at the hip joints bilaterally. Bone marrow of the pelvic ring and proximal femurs demonstrates otherwise normal signal throughout. No intraosseous lesions or fractures. No avascular necrosis of the femoral heads. The visualized lower lumbar spine appears normally aligned. Tendons and ligaments: The gluteus medius and minimus tendons appear intact, without associated muscle atrophy. The nearby proximal iliotibial band also appears intact. The iliopsoas tendon appears intact, without adjacent bursal fluid collections or evidence for impingement syndrome. The origin of the hamstring tendon is intact at the ischial tuberosity, as well as the associated sacrotuberous ligament. The straight and reflected heads of the rectus femoris muscle origin appear intact, as well as the conjoint tendon. The ligamentum teres appears intact where visualized. Labrum and cartilage: Amorphous high signal intensity within the left anterosuperior hip labrum. Cartilage surface of the femoral head appears of normal thickness. The alpha angle of the femur is abnormal at 65?. Soft tissues: Visualized muscles demonstrate normal bulk and internal signal. Quadratus femoris muscle demonstrates no internal edema to suggest ischiofemoral impingement. The proximal sciatic neurovascular bundle appears normal adjacent to the hamstring tendons. No free pelvic fluid. Bladder wall thickness is normal. Genitourinary structures and bowel loops appear normal where visualized. IMPRESSION: 1. Abnormal alpha angle of the left femur consistent with femoral acetabular impingement in the appropriate clinical setting. 2. Left hip osteoarthritis with associated degenerative marrow edema in the acetabulum and degenerative glenoid labral tearing. Dictated by: Mica Silva M.D. on 03/15/2021 at 16:26 Approved by: Mica Silva M.D. on 03/15/2021 at 16:28
== END ==
PROVIDERS: PCP Family Medicine; Referring Provider Orthopaedic Surgery; Visit Provider Orthopaedic Surgery
DX: M16.12 Unilateral primary osteoarthritis, left hip (principal)
CPT/HCPCS: 73721